=== PATIENT | female | born 2000 | race American Indian/Alaskan Native ===

== ENCOUNTER 2021-11-15 15:48 | Emergency (ER) | payer MEDICAID ==
[2021-11-15] MEDS ORDERED: KETOROLAC 10 MG TAB PO ONE (17:44)
--- NOTE | 2021-11-15 17:49 | Emergency Department Report ---
ED General Adult HPI - General Chief complaint: Pain General Stated complaint: RIB PAIN Time Seen by Provider: 11/15/21 16:23 Source: patient Mode of arrival: Ambulatory Limitations: No Limitations - History of Present Illness Initial comments: 21-year-old -Cyp[place] female patient presents with complaints of left lower rib pain x3 days. She denies any injury and states the pain started suddenly when she was getting up from a lying down position. She also denies any cough, radiation of pain into her chest, shortness of breath, loss of taste or smell, abdominal pain, or nausea/vomiting/diarrhea. Patient states Tylenol is not helping with her pain. She rates the pain as a 7/10 in severity. Patient also denies any leg pain/swelling, recent long travel, hormone use, or history of DVT/PE/cancer. No past medical history provided - Related Data Previous Rx's Medication Instructions Recorded Last Taken Type Naproxen 500 mg PO BID PRN #20 tab 11/15/21 Unknown Rx Allergies Allergy/AdvReac Type Severity Reaction Status Date / Time No Known Allergies Allergy Verified 11/15/21 16:13 ED Review of Systems ROS: Stated complaint: RIB PAIN Other details as noted in HPI Constitutional: denies: chills, fever Respiratory: denies: cough, shortness of breath Cardiovascular: denies: chest pain Endocrine: denies: excessive sweating Gastrointestinal: denies: abdominal pain Skin: denies: rash, lesions ED Past Medical Hx - Past Medical History Previous Medical History?: No - Medications Home Medications: Home Medications Medication Instructions Recorded Confirmed Last Taken Type Naproxen 500 mg PO BID PRN #20 tab 11/15/21 Unknown Rx ED Physical Exam - General Limitations: No Limitations General appearance: alert, in no apparent distress - Head Head exam: Present: atraumatic, normocephalic - Eye Eye exam: Present: normal appearance - Neck Neck exam: Present: normal inspection - Respiratory Respiratory exam: Present: normal lung sounds bilaterally, chest wall tenderness (Tenderness to palpation noted to the left anterior 12th and 13th ribs without obvious deformities, bruising, or swelling noted; no other tenderness of the chest). Absent: respiratory distress - Cardiovascular Cardiovascular Exam: Present: regular rate, normal rhythm - GI/Abdominal GI/Abdominal exam: Present: soft, normal bowel sounds. Absent: distended, tenderness, guarding, rebound, rigid, organomegaly, mass - Neurological Exam Neurological exam: Present: alert, oriented X3, normal gait - Psychiatric Psychiatric exam: Present: normal affect, normal mood - Skin Skin exam: Present: warm, dry, intact, normal color. Absent: rash ED Course Vital Signs 11/15/21 11/15/21 16:10 19:08 Temperature 99.2 F Pulse Rate 81 80 Respiratory 16 16 Rate Blood Pressure 129/72 Blood Pressure 117/70 [Right] O2 Sat by Pulse 100 100 Oximetry ED Medical Decision Making - Radiology Data Radiology results: report reviewed Fluoro Time In Minutes: XR ribs UNI w PA chest 3+V LT INDICATION / CLINICAL INFORMATION: anterior lower rib pain, no injury. COMPARISON: None available. FINDINGS: SUPPORT DEVICES: None. HEART /PULMONARY VASCULATURE: No significant abnormality. LUNGS / PLEURA: No significant pulmonary or pleural abnormality. No pneumothorax. BONES: No acute displaced rib fracture. IMPRESSION: 1. No acute findings. - Medical Decision Making 21-year-old -[place] female patient presents with complaints of left lower rib pain x3 days. She denies any injury and states the pain started suddenly when she was getting up from a lying down position. She also denies any cough, radiation of pain into her chest, shortness of breath, loss of taste or smell, abdominal pain, or nausea/vomiting/diarrhea. Patient states Tylenol is not helping with her pain. She rates the pain as a 7/10 in severity. Patient also denies any leg pain/swelling, recent long travel, hormone use, or history of DVT/PE/cancer. No past medical history provided X-rays negative for any acute abnormalities. Patient states pain significantly improved with meds given here in ED. No abdominal tenderness noted on exam. No masses noted. She is well-appearing, her vitals are within normal is, she is stable for discharge home. Discussed in detail signs and symptoms that should prompt immediate return to ED with patient who verbalizes understanding. Critical care attestation.: If time is entered above; I have spent that time in minutes in the direct care of this critically ill patient, excluding procedure time. ED Disposition Clinical Impression: Rib pain on left side Disposition: HOME / SELF CARE / HOMELESS Is pt being admited?: No Condition: Stable Instructions: Chest Wall Pain, [id number] Prescriptions: Naproxen 500 mg PO BID PRN #20 tab PRN Reason: pain Referrals: PRIMARY CARE, [Primary Care Provider] - 3-5 Days [facility] [Provider Group] - 3-5 Days Forms: Work/School Release Form(ED)
--- NOTE | 2021-11-15 17:54 | XRay Report ---
XR ribs UNI w PA chest 3+V LT INDICATION / CLINICAL INFORMATION: anterior lower rib pain, no injury. COMPARISON: None available. FINDINGS: SUPPORT DEVICES: None. HEART /PULMONARY VASCULATURE: No significant abnormality. LUNGS / PLEURA: No significant pulmonary or pleural abnormality. No pneumothorax. BONES: No acute displaced rib fracture. IMPRESSION: 1. No acute findings. Signer Name: Mike Aguilar MD Signed: 11/15/2021 5:50 PM Workstation Name: [id number]
[2021-11-15 19:09] VITALS: BP 117/70
== END 2021-11-15 19:00 | disposition home or self-care (01) ==
LOC: ED 15:48
DX: R07.81 Pleurodynia (principal)
CPT/HCPCS: 99283

== ENCOUNTER 2021-12-03 10:00 | Emergency (ER) | payer MEDICAID ==
[2021-12-03] MEDS ORDERED: KETOROLAC 10 MG TAB PO ONE (10:57)
[2021-12-03] MEDS ORDERED: traMADol 50 MG TAB PO ONE (10:57)
--- NOTE | 2021-12-03 10:59 | Emergency Department Report ---
ED ENT HPI - General Chief complaint: Dental/Oral Stated complaint: TOOTHACHE X2DYS Time Seen by Provider: 12/03/21 10:47 Source: patient Mode of arrival: Ambulatory Limitations: No Limitations - History of Present Illness Initial comments: 21-year-old -[place] female presents to the ER today with complaints of dental pain to her right lower jaw. Onset 2 days ago. She states that she has been getting worse. She has been trying multiple different [id number] regimens without improvement. She states that she did call her dentist office and she is waiting for them to call her back but she could not wait because of the pain. She reports no apparent swelling, difficulty swallowing, trismus, drooling or any additional symptoms at this time. MD complaint: tooth pain -: days(s) (2) - Related Data Previous Rx's Medication Instructions Recorded Last Taken Type Ketorolac [Toradol] 10 mg PO Q6H PRN #20 tablet 12/03/21 Unknown Rx traMADoL [Ultram 50 MG tab] 50 mg PO Q6HR PRN #12 tablet 12/03/21 Unknown Rx Allergies Allergy/AdvReac Type Severity Reaction Status Date / Time No Known Allergies Allergy Verified 11/15/21 16:13 ED Dental HPI - General Chief complaint: Dental/Oral Stated complaint: TOOTHACHE X2DYS Time Seen by Provider: 12/03/21 10:47 Source: patient Mode of arrival: Ambulatory Limitations: No Limitations - Related Data Previous Rx's Medication Instructions Recorded Last Taken Type Ketorolac [Toradol] 10 mg PO Q6H PRN #20 tablet 12/03/21 Unknown Rx traMADoL [Ultram 50 MG tab] 50 mg PO Q6HR PRN #12 tablet 12/03/21 Unknown Rx Allergies Allergy/AdvReac Type Severity Reaction Status Date / Time No Known Allergies Allergy Verified 11/15/21 16:13 ED Review of Systems ROS: Stated complaint: TOOTHACHE X2DYS Other details as noted in HPI Comment: All other systems reviewed and negative ENT: dental pain Respiratory: denies: cough, shortness of breath, wheezing Cardiovascular: denies: chest pain, palpitations ED Past Medical Hx - Medications Home Medications: Home Medications Medication Instructions Recorded Confirmed Last Taken Type Ketorolac [Toradol] 10 mg PO Q6H PRN #20 tablet 12/03/21 Unknown Rx traMADoL [Ultram 50 MG tab] 50 mg PO Q6HR PRN #12 tablet 12/03/21 Unknown Rx ED Physical Exam - General Limitations: No Limitations General appearance: alert, in no apparent distress - Head Head exam: Present: atraumatic, normocephalic, normal inspection - Eye Eye exam: Present: normal appearance, PERRL, EOMI Pupils: Present: normal accommodation - ENT ENT exam: Present: mucous membranes moist - Expanded ENT Exam Expanded Mouth exam: Present: normal external inspection 1 - Dental Tenderness (moderate), Other (mod to severe dental decay with mild gum swelling; no apparent abscess) - Neck Neck exam: Present: normal inspection, full ROM. Absent: meningismus - Respiratory Respiratory exam: Absent: respiratory distress - Cardiovascular Cardiovascular Exam: Present: regular rate - Neurological Exam Neurological exam: Present: alert, oriented X3, CN II-XII intact, normal gait - Psychiatric Psychiatric exam: Present: normal affect, normal mood - Skin Skin exam: Present: intact ED Course Vital Signs 12/03/21 10:36 Temperature 98.3 F Pulse Rate 69 Respiratory 18 Rate Blood Pressure 126/63 O2 Sat by Pulse 100 Oximetry Critical care attestation.: If time is entered above; I have spent that time in minutes in the direct care of this critically ill patient, excluding procedure time. ED Disposition Clinical Impression: Pain due to dental caries Disposition: HOME / SELF CARE / HOMELESS Is pt being admited?: No Does the pt Need Aspirin: No Condition: Stable Instructions: Dental Caries, Pediatric, Benzocaine mouth gel, ointment, solution, or dental paste Additional Instructions: Take the amoxicillin as prescribed and to completion. Take the toradol and ultram to help with pain. I recommend that you continue to do salt water rinses. Most importantly make the appointment with your dentist for follow-up in 1 to 2 weeks. Return if your symptoms worsens in any way. Prescriptions: Ketorolac [Toradol] 10 mg PO Q6H PRN #20 tablet PRN Reason: pain traMADoL [Ultram 50 MG tab] 50 mg PO Q6HR PRN #12 tablet PRN Reason: Pain , Severe (7-10) Referrals: PRIMARY CARE,MD [Referring] - 3-5 Days Forms: Work/School Release Form(ED) Time of Disposition: 10:58
[2021-12-03 11:31] VITALS: BP 116/56
== END 2021-12-03 11:32 | disposition home or self-care (01) ==
LOC: ED 10:00
DX: K02.9 Dental caries, unspecified (principal); Z79.899 Other long term (current) drug therapy
CPT/HCPCS: 99282